=== PATIENT | male | born 1960 | race Caucasian/White ===

== ENCOUNTER 2019-02-16 23:50 | Emergency (ER) | payer BC ==
[2019-02-17] MEDS ORDERED: HYDROmorphone 1 MG/ML Syringe IM ONE (00:09)
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
[2019-02-17] MEDS ORDERED: Ondansetron 4 MG Tab.DIS PO ONE (01:13)
[2019-02-17 04:54] VITALS: BP 120/50
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
--- NOTE | 2019-02-17 08:29 | CT ---
[id number] CT/CT Thoracic Spine WO IV Exam: CT Thoracic Spine WO IV Indication:MUSCLE SPASMS DOWN BACK AND THROUGH SHOULDER BLADES Comparison: CT from 2016. Discussion: Moderate changes of degenerative disc disease throughout the thoracic spine, including numerous bridging anterior osteophytes. All levels demonstrate mild amount of intervertebral disc height loss as well. Moderate to moderate/advanced changes of facet joint arthropathy diffusely throughout the thoracic spine as well. Findings result in partial bony foraminal stenosis at multiple levels. However, no radiographic evidence of severe central canal stenosis. No evidence of an acute fracture or compression deformity. No spondylolisthesis. Bone mineralization is diffusely decreased. Moderate generalized atrophy and fatty infiltration of the paraspinal musculature. IVC filter in place. Incidentally noted is dilation of both renal collecting systems that extends beyond the field of view of this examination. Additionally, there is a complex mass arising in a cortical defect in the left kidney measuring up to 22 mm in diameter. This contains both calcification and fat. Finding was seen in 2016 and appears similar in size. Impression: No acute findings in the thoracic spine. Abnormal dilation of both renal collecting systems extending beyond the field of view of this examination. Additionally, there is a complex left renal mass. Consider CT examination of the abdomen/pelvis for further evaluation. Flip Montanez MD 02/17/19 0828 Thank you for allowing us to participate in the care of your patient.
== END 2019-02-17 02:40 | disposition home or self-care (01) ==
LOC: KA.ED 23:50
DX: S10.93XA Contusion of unspecified part of neck, initial encounter (principal); M54.6 Pain in thoracic spine; E78.00 Pure hypercholesterolemia, unspecified; I10 Essential (primary) hypertension; E10.9 Type 1 diabetes mellitus without complications; Z79.899 Other long term (current) drug therapy; Z99.3 Dependence on wheelchair; Z88.6 Allergy status to analgesic agent; Z91.030 Bee allergy status; W22.8XXA Striking against or struck by other objects, initial encounter
CPT/HCPCS: 72125; 72128; 96372; 99283; A9270; J1170; J3360

== ENCOUNTER 2019-07-16 06:50 | Inpatient (IN) | payer BC, MEDICARE ==
[2019-07-16] MEDS ORDERED: Sodium Chloride 0.9% 10 ML Syringe FLUSH PRN (07:07)
[2019-07-16] MEDS ORDERED: Metoclopramide 10 MG/2 ML SDV IVPUSH ONE (07:48)
[2019-07-16] MEDS ORDERED: Sodium Chloride 0.9% 1,000 ML IV ONE (07:48)
--- NOTE | 2019-07-16 07:55 | CR ---
[id number] RAD/RAD Chest PA or AP 1V EXAM: RAD Chest PA or AP 1V INDICATION: CHEST PAIN. COMPARISON: None. DISCUSSION: Cardiomediastinal silhouette is normal in size and contour. No infiltrate, effusion, pneumothorax, or edema. Low lung volumes associated vascular crowding. Degenerative changes of the shoulders bilaterally. IMPRESSION: No acute cardiopulmonary abnormality. John Gibbs DO 07/16/19 0753 Thank you for allowing us to participate in the care of your patient.
[2019-07-16 07:58] LABS: ANION GAP 18.1 mmol/L (5-15); CHLORIDE,CL 98 mmol/L (98-115); SODIUM,NA 137 mmol/L (136-145)
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
[2019-07-16] MEDS ORDERED: HYDROmorphone 1 MG/ML Syringe IVPUSH ONE (08:10)
--- NOTE | 2019-07-16 08:50 | CT ---
[id number] CT/CT Abdomen Pelvis WO IV EXAM: CT Abdomen Pelvis WO IV CLINICAL DATA: ABDOMEN PAIN. COMPARISON STUDY: 2016. FINDINGS: Mild amount of reactive change/inflammation in the peripancreatic fat. Findings are consistent with mild changes of acute pancreatitis. No abscess, pseudocyst, or other complicating features identified on this noncontrast study. Gallbladder has been resected. IVC filter in place. Again seen is what appears to be resolving fat necrosis adjacent to the superior pole of the right kidney. Findings have decreased in size and become more calcified since the prior examination. Circumferential urinary bladder wall thickening with a diverticulum. 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 No bowel obstruction or inflammation. No lymphadenopathy. Chronic changes throughout the osseous structures, similar to the prior examination. IMPRESSION: Findings consistent with mild changes of acute pancreatitis. Multiple chronic findings are described above. Flip Montanez MD 07/16/19 0849 Thank you for allowing us to participate in the care of your patient.
[2019-07-16] MEDS ORDERED: Melatonin 3 MG Tab PO PRN (11:05)
--- NOTE | 2019-07-16 11:21 | US ---
[id number] US/US Abdomen Limited Exam: US Abdomen Limited Clinical Data: ACUTE PANCREATITIS COMPARISON: CORRELATION IS MADE WITH TODAY'S CAT SCAN FINDINGS: The common duct is not well seen The gallbladder has been removed The liver is slightly heterogeneous The pancreas shows no obvious abnormality on ultrasound IMPRESSION: LIMITED STUDY PANCREATITIS BETTER SEEN ON CAT SCAN Fred Khalil MD 07/16/19 1120 Thank you for allowing us to participate in the care of your patient.
[2019-07-16] MEDS: HYDROmorphone 1 MG/ML Syringe IVPUSH PRN ×3 (11:43→17:54)
[2019-07-16] MEDS: Ondansetron 4 MG/2 ML SDV IVPUSH PRN ×3 (11:44→21:12)
[2019-07-16] MEDS: Lactated Ringers 1,000 ML IV SCH ×2 (11:52→18:43)
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
[2019-07-16] MEDS: Insulin Aspart 100 Units/ML 3 ML Pen SUBCUT SCH ×3 (11:58→22:00)
[2019-07-16] MEDS: Acetaminophen 500 MG Tab PO PRN (16:54)
[2019-07-16] MEDS: Ketorolac 30 MG/ML SDV IVPUSH PRN (22:17)
[2019-07-17] MEDS: Lactated Ringers 1,000 ML IV SCH ×2 (01:28→08:17)
[2019-07-17] MEDS: Ketorolac 30 MG/ML SDV IVPUSH PRN (04:01)
[2019-07-17] MEDS: Acetaminophen 500 MG Tab PO PRN (05:35)
[2019-07-17 08:06] LABS: ANION GAP 16.1 mmol/L (5-15); CHLORIDE,CL 99 mmol/L (98-115); SODIUM,NA 138 mmol/L (136-145)
[2019-07-17] MEDS: Enoxaparin 40 MG/0.4 ML Syringe SUBCUT SCH (08:17)
[2019-07-17] MEDS: Insulin Aspart 100 Units/ML 3 ML Pen SUBCUT SCH ×4 (08:25→21:52)
--- NOTE | 2019-07-17 11:36 | PCM.PN ---
- General Info Date of Service: 07/17/19 Subjective Update: Mr. Buchanan reports feeling well this morning. He has had resolution of abdominal pain and nausea. Tolerating sips of water and ice chips. Slept well after getting Toradol for a headache, which was felt to be from the hydromorphone. Has developed a runny nose this morning and he believes he has a cold coming on. Denies fever, chills, headache, chest pain, shortness of breath , dysuria, or other complaints. - Patient Data Vitals - Most Recent: Last Vital Signs Temp 36.7 C 07/17/19 10:06 Pulse 97 07/17/19 10:06 Resp 16 07/17/19 10:06 BP 142/70 H 07/17/19 10:06 Pulse Ox 96 07/17/19 10:06 Weight - Most Recent: 102.829 kg I&O - Last 24 Hours: Intake & Output 07/16/19 07/17/19 07/17/19 22:59 06:59 14:59 Intake Total 1300 1315 Output Total 1000 800 Balance 300 515 Lab Results Last 24 Hours: Laboratory Results - last 24 hr 07/16/19 07/16/19 07/16/19 Range/Units 11:49 18:03 22:22 WBC (5.00-10.00) 10^3/uL RBC (4.50-6.00) 10^6/uL Hgb (13.0-17.0) g/dL Hct (40.0-52.0) % MCV (82.0-92.0) fL MCH (27.0-31.0) pg MCHC (32.0-36.0) g/dL RDW (11.5-14.5) % Plt Count (150-400) 10^3/uL MPV (7.4-10.4) fL Immature Gran % (Auto) (0.0-5.0) % Neut % (Auto) (50.0-70.0) % Lymph % (Auto) (20.0-40.0) % [place] % (Auto) (2.0-8.0) % Eos % (Auto) (1.0-3.0) % Baso % (Auto) (0.0-1.0) % Immature Gran # (Auto) (0.00-0.50) 10^3/uL Neut # (Auto) (2.50-7.00) 10^3/uL Lymph # (Auto) (1.00-4.00) 10^3/uL [place] # (Auto) (0.10-0.80) 10^3/uL Eos # (Auto) (0.10-0.30) 10^3/uL Baso # (Auto) (0.00-0.10) 10^3/uL Sodium (136-145) mmol/L Potassium (3.3-5.3) mmol/L Chloride (98-115) mmol/L Carbon Dioxide (21.0-32.0) mmol/L Anion Gap (5-15) mmol/L BUN (6-25) mg/dL Creatinine (0.51-1.17) mg/dL Est Cr Clr Drug Dosing mL/min Estimated GFR (MDRD) mL/min Glucose (75 - 99) mg/dL POC Glucose 112 H 116 H 106 (74-106) mg/dl Calcium (8.7-10.3) mg/dL Total Bilirubin (0.2-1.0) mg/dL AST (15-37) U/L ALT (12-78) U/L Alkaline Phosphatase (46-116) IU/L Total Protein (6.4-8.2) g/dL Albumin (3.00-4.80) g/dL 07/17/19 07/17/19 07/17/19 Range/Units 05:40 07:12 07:12 WBC 3.73 L (5.00-10.00) 10^3/uL RBC 3.72 L (4.50-6.00) 10^6/uL Hgb 12.3 L (13.0-17.0) g/dL Hct 34.2 L (40.0-52.0) % MCV 91.9 (82.0-92.0) fL MCH 33.1 H (27.0-31.0) pg MCHC 36.0 (32.0-36.0) g/dL RDW 11.6 (11.5-14.5) % Plt Count 198 (150-400) 10^3/uL MPV 8.5 (7.4-10.4) fL Immature Gran % (Auto) 0.0 (0.0-5.0) % Neut % (Auto) 59.8 (50.0-70.0) % Lymph % (Auto) 24.9 (20.0-40.0) % [place] % (Auto) 11.0 H (2.0-8.0) % Eos % (Auto) 3.8 H (1.0-3.0) % Baso % (Auto) 0.5 (0.0-1.0) % Immature Gran # (Auto) 0.00 (0.00-0.50) 10^3/uL Neut # (Auto) 2.23 L (2.50-7.00) 10^3/uL Lymph # (Auto) 0.93 L (1.00-4.00) 10^3/uL [place] # (Auto) 0.41 (0.10-0.80) 10^3/uL Eos # (Auto) 0.14 (0.10-0.30) 10^3/uL Baso # (Auto) 0.02 (0.00-0.10) 10^3/uL Sodium 138 (136-145) mmol/L Potassium 4.0 (3.3-5.3) mmol/L Chloride 99 (98-115) mmol/L Carbon Dioxide 26.9 (21.0-32.0) mmol/L Anion Gap 16.1 H (5-15) mmol/L BUN 12 (6-25) mg/dL Creatinine 0.72 (0.51-1.17) mg/dL Est Cr Clr Drug Dosing 116.88 mL/min Estimated GFR (MDRD) > 60 mL/min Glucose 117 H (75 - 99) mg/dL POC Glucose 107 H (74-106) mg/dl Calcium 8.4 L (8.7-10.3) mg/dL Total Bilirubin 0.5 (0.2-1.0) mg/dL AST 13 L (15-37) U/L ALT 21 (12-78) U/L Alkaline Phosphatase 53 (46-116) IU/L Total Protein 6.5 (6.4-8.2) g/dL Albumin 3.01 (3.00-4.80) g/dL 07/17/19 Range/Units 08:24 WBC (5.00-10.00) 10^3/uL RBC (4.50-6.00) 10^6/uL Hgb (13.0-17.0) g/dL Hct (40.0-52.0) % MCV (82.0-92.0) fL MCH (27.0-31.0) pg MCHC (32.0-36.0) g/dL RDW (11.5-14.5) % Plt Count (150-400) 10^3/uL MPV (7.4-10.4) fL Immature Gran % (Auto) (0.0-5.0) % Neut % (Auto) (50.0-70.0) % Lymph % (Auto) (20.0-40.0) % [place] % (Auto) (2.0-8.0) % Eos % (Auto) (1.0-3.0) % Baso % (Auto) (0.0-1.0) % Immature Gran # (Auto) (0.00-0.50) 10^3/uL Neut # (Auto) (2.50-7.00) 10^3/uL Lymph # (Auto) (1.00-4.00) 10^3/uL [place] # (Auto) (0.10-0.80) 10^3/uL Eos # (Auto) (0.10-0.30) 10^3/uL Baso # (Auto) (0.00-0.10) 10^3/uL Sodium (136-145) mmol/L Potassium (3.3-5.3) mmol/L Chloride (98-115) mmol/L Carbon Dioxide (21.0-32.0) mmol/L Anion Gap (5-15) mmol/L BUN (6-25) mg/dL Creatinine (0.51-1.17) mg/dL Est Cr Clr Drug Dosing mL/min Estimated GFR (MDRD) mL/min Glucose (75 - 99) mg/dL POC Glucose 115 H (74-106) mg/dl Calcium (8.7-10.3) mg/dL Total Bilirubin (0.2-1.0) mg/dL AST (15-37) U/L ALT (12-78) U/L Alkaline Phosphatase (46-116) IU/L Total Protein (6.4-8.2) g/dL Albumin (3.00-4.80) g/dL Med Orders - Current: Current Medications Acetaminophen (Tylenol Extra Strength) 1,000 mg PO Q8H PRN PRN Reason: Pain Last Admin: 07/17/19 05:35 Dose: 1,000 mg Enoxaparin Sodium (Lovenox) 40 mg SUBCUT DAILY [facility] Last Admin: 07/17/19 08:17 Dose: 40 mg Hydromorphone HCl (Dilaudid) 1 mg IVPUSH Q2H PRN PRN Reason: Pain Last Admin: 07/16/19 17:54 Dose: 1 mg Lactated Ringer's (Ringers, Lactated) 1,000 mls @ 100 mls/hr IV ASDIRECTED [facility] Last Admin: 07/17/19 08:17 Dose: 150 mls/hr Insulin Aspart (Novolog) 0 unit SUBCUT WITHMEALSANDBED [facility]; Protocol Last Admin: 07/17/19 08:25 Dose: Not Given Ketorolac Tromethamine (Toradol) 30 mg IVPUSH Q6H PRN PRN Reason: Headache Stop: 07/21/19 21:41 Last Admin: 07/17/19 04:01 Dose: 30 mg Ondansetron HCl (Zofran) 4 mg IVPUSH Q4H PRN PRN Reason: Nausea/Vomiting Last Admin: 07/16/19 21:12 Dose: 4 mg Sodium Chloride (Saline Flush) 10 ml FLUSH Q8HR PRN PRN Reason: keep vein open Last Admin: 07/16/19 11:53 Dose: 10 ml Discontinued Medications Hydromorphone HCl (Dilaudid) 1 mg IVPUSH ONETIME ONE Stop: 07/16/19 08:11 Last Admin: 07/16/19 08:14 Dose: 1 mg Sodium Chloride (Normal Saline) 1,000 mls @ 999 mls/hr IV .BOLUS ONE Stop: 07/16/19 08:48 Last Admin: 07/16/19 07:50 Dose: 999 mls/hr Melatonin (Melatonin) 6 mg PO BEDTIME PRN PRN Reason: Insomnia Metoclopramide HCl (Reglan) 10 mg IVPUSH ONETIME ONE Stop: 07/16/19 07:49 Last Admin: 07/16/19 07:54 Dose: 10 mg - Exam Physical Findings Comments:: GENERAL: Well-appearing adult white male sitting on hospital bed in no acute distress. HEENT: Normocephalic, atraumatic. Conjunctiva clear. Nares patent; clear rhinorrhea. Mucous membranes moist, posterior pharynx unremarkable. NECK: Supple, no masses, anterior right neck scar. CV: Regular rate and rhythm, no murmurs, rubs, or gallops. 2+ radial pulses. PULMONARY: Normal effort, clear to auscultation bilaterally, no wheezes, rales, or rhonchi. ABDOMEN: Positive bowel sounds, soft, nontender. EXTREMITIES: No edema, cyanosis, or clubbing. MUSCULOSKELETAL: R AKA stump well healed. Moves all extremities well. NEUROLOGICAL: No obvious deficits. DERMATOLOGIC: No rashes or suspicious lesions in exposed areas. PSYCHIATRIC: Alert, interactive, appropriate affect. - Problem List Review Problem List Initiated/Reviewed/Updated: Yes - My Orders Last 24 Hours: My Active Orders 07/16/19 10:56 Intake and Output [RC] 1400,2200,0600 HYDROmorphone [Dilaudid] 1 mg IVPUSH Q2H PRN 07/16/19 10:59 Ondansetron [Zofran] 4 mg IVPUSH Q4H PRN 07/16/19 11:00 Lactated Ringers [Ringers, Lactated] 1,000 ml IV ASDIRECTED 07/16/19 11:03 Up With Assistance [RC] ASDIRECTED 07/16/19 12:00 Insulin Aspart [NovoLOG] See Protocol SUBCUT WITHMEALSANDBED 07/16/19 15:13 Blood Glucose Check, Bedside [RC] QIDACANDBED 07/16/19 16:15 Acetaminophen [Tylenol Extra Strength] 1,000 mg PO Q8H PRN 07/16/19 21:40 Ketorolac [Toradol] 30 mg IVPUSH Q6H PRN 07/17/19 09:00 Enoxaparin [Lovenox] 40 mg SUBCUT DAILY 07/17/19 Dinner Full Liquid Diet [DIET] 07/17/19 Lunch Clear Liquid Diet [DIET] 07/18/19 05:11 CBC WITH AUTO DIFF [HEME] AM COMPREHENSIVE METABOLIC PN,CMP [CHEM] AM - Plan Plan:: HPI summary: 59yoM with a hx notable for DMT2 who was in his usual state of health until about 1 week ago, when he saw his PCP Dr. Morales at [facility] for routine follow-up of DMT2. Due to reports of using upwards of 4000mg of Tylenol daily, was started on tramadol 50mg prn for chronic neck and hand pain, for which he is also being seen by neurosurgery for planned additional interventions. He also received his Shingrix vaccination that day. The subsequent few days, he had generalized malaise and low back pain, for which he was seen at [facility] on 07/14/19. He states he didn't have any abdominal pain at that time. UA was completed and without concern for infection and he was instructed to push fluids and return for any worsening. In the past 12 hours , he developed mid-upper abdominal pain with radiation into the RUQ and back associated with anorexia, nausea, and diarrhea. Any po intake and movement exacerbate the pain. Due to worsening and also development of pain radiating into his R chest, he came by private vehicle into the [facility] ED. He denies any medication changes recently aside from starting tramadol, which he has taken about once daily. He has a history of laparoscopic cholecystectomy due to gallstones in 2016 without known complications since. He endorses longstanding binge drinking of 10-12 drinks on Saturdays while watching football, but no alcohol use otherwise. Due to generalized malaise last week, he drank less (3 beers) 4 days ago on Sunday instead and reports that is the last time he drank. ED work-up and interventions: VS without fever, hypotension, or tachycardia. CBC/CMP/lipase/troponin/UA unremarkable except lipase 2260. EKG NSR without ST segment changes. CXR unremarkable. CT abdomen/pelvis without contrast with evidence of mild pancreatitis and chronic findings of bladder thickening, R kidney fat necrosis, chronic osseous changes, and IVC filter. He was given NS 1L, hydromorphone 1mg, and metoclopramide 10mg. Hospital course: Resolution of abdominal pain and nausea with IVF and minimal use of hydromorphone. Had rebound headache following hydromorphone relieved with ketorolac. Hospitalization problems and plan: # Acute pancreatitis: Lipase [address] with evidence of mild acute pancreatitis. Clinical status, labs, and imaging studies without evidence of infection or complication. Etiology favors recurrent alcohol binge drinking as acause. Labs, US, and CT without evidence of retained stone from prior cholecystectomy, triglycerides not significantly elevated, and no common culprit medications currently taking. - Advanced diet to clear liquids this morning, full liquids in the afternoon , and low fat diet in the evening if tolerating well - Decrease LR to 100cc/hr now and then discontinue later if advancing diet - CBC and CMP tomorrow # Bladder thickening noted on CT: No urinary sxs. Monitor and consider further outpatient workup. 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 Consider outpatient consultation for removal. Chronic, stable conditions: # RABIA: Home CPAP. # HTN: Hold quinapril for now while monitoring BP. # DMT2: Recent A1c 7%. Hold metformin and glimiperide. ISS low dose QID. # HLD: Hx mixed hyperlipidemia with last lipid panel 05/01/19 with TG 446, which is the highest on record since 2013. Hold atorvastatin. # Osteoarthritis and associated joint pain: Hold tramadol. # ADHD: Hold Adderall. Hospitalization details: # FEN: LR @ 100cc/hr. Electrolytes normal; recheck tomorrow. Advance diet as above. # PPX: Enoxaparin 40mg daily for DVT ppx. # Code status: FULL. # Emergency contact: , Christianne. # Disposition: Continue inpatient status. Anticipate discharge tomorrow if ongoing clinical improvement.
[2019-07-17] MEDS ORDERED: Sodium Chloride 0.9% 1,000 ML IV SCH (13:00)
[2019-07-17] MEDS ORDERED: Pseudoephedrine 30 MG Tab PO PRN (20:36)
[2019-07-18] MEDS: Ondansetron 4 MG/2 ML SDV IVPUSH PRN (01:45)
[2019-07-18] MEDS: Ketorolac 30 MG/ML SDV IVPUSH PRN (01:49)
[2019-07-18] MEDS: Insulin Aspart 100 Units/ML 3 ML Pen SUBCUT SCH ×2 (08:04→11:54)
[2019-07-18 08:29] LABS: ANION GAP 12.5 mmol/L (5-15); CHLORIDE,CL 102 mmol/L (98-115); SODIUM,NA 138 mmol/L (136-145)
[2019-07-18] MEDS: Enoxaparin 40 MG/0.4 ML Syringe SUBCUT SCH (08:51)
--- NOTE | 2019-07-18 10:36 | PCM.DCSUM1 ---
Discharge Summary - Hospital Course Free Text/Narrative:: Date of admission: 07/16/19 Date of discharge: 07/18/19 Admission diagnoses: # Acute pancreatitis # Alcohol use disorder, binge drinking # Bladder thickening noted on CT # Residual IVC filter # RABIA # HTN # DMT2 # HLD # Osteoarthritis # ADHD Discharge diagnoses: # Acute pancreatitis, likely alcohol induced # Alcohol use disorder, binge drinking # Bladder thickening noted on CT # Residual IVC filter # RABIA # HTN # DMT2 # HLD # Osteoarthritis # ADHD Consultations: None Procedures: None Hospital course: HPI summary: 59yoM with a hx notable for DMT2 who was in his usual state of health until about 1 week prior to admission, when he saw his PCP Dr. Morales at [facility] for routine follow-up of DMT2. Due to reports of using upwards of 4000mg of Tylenol daily, was started on tramadol 50mg prn for chronic neck and hand pain, for which he is also being seen by neurosurgery for planned additional interventions. He also received his Shingrix vaccination that day. The subsequent few days, he had generalized malaise and low back pain , for which he was seen at [facility] on 07/14/19. He states he didn't have any abdominal pain at that time. UA was completed and without concern for infection and he was instructed to push fluids and return for any worsening. Subsequently in the day prior to admission, he developed mid-upper abdominal pain with radiation into the RUQ and back associated with anorexia, nausea, and diarrhea. Any po intake and movement exacerbate the pain. Due to worsening and also development of pain radiating into his R chest, he came by private vehicle into the [facility] ED. He denies any medication changes recently aside from starting tramadol, which he has taken about once daily. He has a history of laparoscopic cholecystectomy due to gallstones in 2016 without known complications since. He endorses longstanding binge drinking of 10-12 drinks on Saturdays while watching football, but no alcohol use otherwise. Due to generalized malaise last week, he drank less (3 beers) 4 days ago on Sunday instead and reports that is the last time he drank. ED evaluation was consistent with acute pancreatitis (Lipase [address] with evidence of mild acute pancreatitis) without evidence of infection. He was admitted for ongoing evaluation and management. He had resolution of abdominal pain and nausea with IVF and minimal use of hydromorphone. Had rebound headache following hydromorphone relieved with ketorolac. Otherwise did well and progressed to a low fat/fiber diet and discontinuation of IVF. No complications arose during his stay. He was placed on low dose ISS in lieu of oral diabetic medications during his inpatient stay and other oral medications (quinapril, atorvastatin, tramadol, and Adderall) were also held during his stay, but felt to safely be restarted at discharge. Nighttime CPAP was continued. Etiology of the pancreatitis favors recurrent alcohol binge drinking as cause, as labs, US, and CT without evidence of retained stone from prior cholecystectomy, triglycerides not significantly elevated, and no common culprit medications currently taking (of note, metformin and atorvastatin are class III for culprits of drug-induced pancreatitis and have been chronic medications for him, so unlikely to be implicated as underlying etiology). He was counseled on alcohol cessation for at least the coming month and avoidance of excessive use in the future to prevent recurrence. He was also counseled on return precautions for subacute complications of pancreatitis and other concerns which may arise. Of note, CT noted bladder thickening and residual IVF filter. Consider outpatient work-up for bladder thickening and consultation for IVC filter removal. Discharge and follow-up recommendations: - Discharge to home - Low fat/fiber diet with no alcohol - New medications at discharge: None - Follow-up with Max Jung PA-C, at [facility], per patient request for hospital follow-up - Consider outpatient work-up for bladder thickening and consultation for IVC filter removal - Discharge Data Discharge Date: 07/18/19 Discharge Disposition: Home, Self-Care 01 Condition: Good - Referral to Home Health Primary Care Physician: Oziel Morales MD - Patient Instructions Diet: GI Soft/Low Residue/Low Fiber (Low Fat) Diet, Other: Avoid alcohol Activity: As Tolerated Showering/Bathing: May Shower Notify Provider of: Fever, Increased Pain, Nausea and/or Vomiting - Discharge Plan *PRESCRIPTION DRUG MONITORING PROGRAM REVIEWED*: Yes *COPY OF PRESCRIPTION DRUG MONITORING REPORT IN PATIENT RHINA: Yes Home Medications: Home Meds Amphetamine/Dextroamphetamine [Adderall] 20 mg PO ASDIRECTED 05/26/14 [History] Quinapril [Accupril] 20 mg PO DAILY 05/26/14 [History] metFORMIN [Glucophage] 500 mg PO BID 05/26/14 [History] atorvaSTATin Calcium [Atorvastatin Calcium] 20 mg PO DAILY 12/04/15 [History] Glimepiride 4 mg PO DAILY 02/17/19 [History] traMADol HCl [Tramadol HCl] 50 mg PO Q4H PRN 07/16/19 [History] Acetaminophen [Tylenol Extra Strength] 1,000 mg PO Q8H PRN tablet 07/18/19 [Rx] Patient Handouts: Acute Pancreatitis Referrals: Max Jung PA-C [Physician Site Physician] - 07/24/19 3:30 pm ([facility]) - Discharge Summary/Plan Comment DC Time >30 min.: Yes - General Info Subjective Update: Mr. Buchanan reports feeling well this morning. He has a mild episode of 2/10 severity upper abdominal pain in the night, which resolved with a dose of ketorolac. He has since tolerated clear liquids for breakfast without return of abdominal pain and nausea. Ongoing runny nose, but no other respiratory or HEENT symptoms. Denies fever, chills, headache, chest pain, shortness of breath , or other complaints. - Patient Data Vitals - Most Recent: Last Vital Signs Temp 36.1 C 07/18/19 06:53 Pulse 86 07/18/19 06:53 Resp 16 07/18/19 06:53 BP 135/79 07/18/19 09:00 Pulse Ox 99 07/18/19 09:00 Weight - Most Recent: 102.829 kg I&O - Last 24 hours: Intake & Output 07/17/19 07/18/19 07/18/19 22:59 06:59 14:59 Intake Total 780 50 Balance 780 50 Lab Results - Last 24 hrs: Laboratory Results - last 24 hr 07/17/19 07/17/19 07/18/19 Range/Units 17:47 21:38 07:29 WBC (5.00-10.00) 10^3/uL RBC (4.50-6.00) 10^6/uL Hgb (13.0-17.0) g/dL Hct (40.0-52.0) % MCV (82.0-92.0) fL MCH (27.0-31.0) pg MCHC (32.0-36.0) g/dL RDW (11.5-14.5) % Plt Count (150-400) 10^3/uL MPV (7.4-10.4) fL Immature Gran % (Auto) (0.0-5.0) % Neut % (Auto) (50.0-70.0) % Lymph % (Auto) (20.0-40.0) % [place] % (Auto) (2.0-8.0) % Eos % (Auto) (1.0-3.0) % Baso % (Auto) (0.0-1.0) % Immature Gran # (Auto) (0.00-0.50) 10^3/uL Neut # (Auto) (2.50-7.00) 10^3/uL Lymph # (Auto) (1.00-4.00) 10^3/uL [place] # (Auto) (0.10-0.80) 10^3/uL Eos # (Auto) (0.10-0.30) 10^3/uL Baso # (Auto) (0.00-0.10) 10^3/uL Sodium (136-145) mmol/L Potassium (3.3-5.3) mmol/L Chloride (98-115) mmol/L Carbon Dioxide (21.0-32.0) mmol/L Anion Gap (5-15) mmol/L BUN (6-25) mg/dL Creatinine (0.51-1.17) mg/dL Est Cr Clr Drug Dosing mL/min Estimated GFR (MDRD) mL/min Glucose (75 - 99) mg/dL POC Glucose 226 H 179 H 160 H (74-106) mg/dl Calcium (8.7-10.3) mg/dL Total Bilirubin (0.2-1.0) mg/dL AST (15-37) U/L ALT (12-78) U/L Alkaline Phosphatase (46-116) IU/L Total Protein (6.4-8.2) g/dL Albumin (3.00-4.80) g/dL 07/18/19 07/18/19 Range/Units 07:55 07:55 WBC 4.12 L (5.00-10.00) 10^3/uL RBC 3.87 L (4.50-6.00) 10^6/uL Hgb 12.6 L (13.0-17.0) g/dL Hct 35.4 L (40.0-52.0) % MCV 91.5 (82.0-92.0) fL MCH 32.6 H (27.0-31.0) pg MCHC 35.6 (32.0-36.0) g/dL RDW 11.7 (11.5-14.5) % Plt Count 199 (150-400) 10^3/uL MPV 8.1 (7.4-10.4) fL Immature Gran % (Auto) 0.0 (0.0-5.0) % Neut % (Auto) 63.1 (50.0-70.0) % Lymph % (Auto) 20.1 (20.0-40.0) % [place] % (Auto) 12.9 H (2.0-8.0) % Eos % (Auto) 3.4 H (1.0-3.0) % Baso % (Auto) 0.5 (0.0-1.0) % Immature Gran # (Auto) 0.00 (0.00-0.50) 10^3/uL Neut # (Auto) 2.60 (2.50-7.00) 10^3/uL Lymph # (Auto) 0.83 L (1.00-4.00) 10^3/uL [place] # (Auto) 0.53 (0.10-0.80) 10^3/uL Eos # (Auto) 0.14 (0.10-0.30) 10^3/uL Baso # (Auto) 0.02 (0.00-0.10) 10^3/uL Sodium 138 (136-145) mmol/L Potassium 4.2 (3.3-5.3) mmol/L Chloride 102 (98-115) mmol/L Carbon Dioxide 27.7 (21.0-32.0) mmol/L Anion Gap 12.5 (5-15) mmol/L BUN 11 (6-25) mg/dL Creatinine 0.75 (0.51-1.17) mg/dL Est Cr Clr Drug Dosing 112.20 mL/min Estimated GFR (MDRD) > 60 mL/min Glucose 184 H (75 - 99) mg/dL POC Glucose (74-106) mg/dl Calcium 8.6 L (8.7-10.3) mg/dL Total Bilirubin 0.3 (0.2-1.0) mg/dL AST 14 L (15-37) U/L ALT 22 (12-78) U/L Alkaline Phosphatase 55 (46-116) IU/L Total Protein 6.6 (6.4-8.2) g/dL Albumin 3.13 (3.00-4.80) g/dL Med Orders - Current: Current Medications Acetaminophen (Tylenol Extra Strength) 1,000 mg PO Q8H PRN PRN Reason: Pain Last Admin: 07/17/19 05:35 Dose: 1,000 mg Enoxaparin Sodium (Lovenox) 40 mg SUBCUT DAILY [facility] Last Admin: 07/18/19 08:51 Dose: 40 mg Insulin Aspart (Novolog) 0 unit SUBCUT WITHMEALSANDBED [facility]; Protocol Last Admin: 07/18/19 08:04 Dose: 1 units Ketorolac Tromethamine (Toradol) 30 mg IVPUSH Q6H PRN PRN Reason: Headache Stop: 07/21/19 21:41 Last Admin: 07/18/19 01:49 Dose: 30 mg Ondansetron HCl (Zofran) 4 mg IVPUSH Q4H PRN PRN Reason: Nausea/Vomiting Last Admin: 07/18/19 01:45 Dose: 4 mg Pseudoephedrine HCl (Sudogest) 30 mg PO Q6H PRN PRN Reason: Congestion Last Admin: 07/17/19 21:40 Dose: 30 mg Quinapril HCl (Accupril) 20 mg PO DAILY [facility] Last Admin: 07/18/19 09:50 Dose: Not Given Sodium Chloride (Saline Flush) 10 ml FLUSH Q8HR PRN PRN Reason: keep vein open Last Admin: 07/16/19 11:53 Dose: 10 ml Discontinued Medications Hydromorphone HCl (Dilaudid) 1 mg IVPUSH ONETIME ONE Stop: 07/16/19 08:11 Last Admin: 07/16/19 08:14 Dose: 1 mg Hydromorphone HCl (Dilaudid) 1 mg IVPUSH Q2H PRN PRN Reason: Pain Last Admin: 07/16/19 17:54 Dose: 1 mg Sodium Chloride (Normal Saline) 1,000 mls @ 999 mls/hr IV .BOLUS ONE Stop: 07/16/19 08:48 Last Admin: 07/16/19 07:50 Dose: 999 mls/hr Lactated Ringer's (Ringers, Lactated) 1,000 mls @ 100 mls/hr IV ASDIRECTED [facility] Last Admin: 07/17/19 08:17 Dose: 150 mls/hr Sodium Chloride (Normal Saline) 1,000 mls @ 100 mls/hr IV ASDIRECTED [facility] Melatonin (Melatonin) 6 mg PO BEDTIME PRN PRN Reason: Insomnia Metoclopramide HCl (Reglan) 10 mg IVPUSH ONETIME ONE Stop: 07/16/19 07:49 Last Admin: 07/16/19 07:54 Dose: 10 mg - Exam Physical Findings Comments:: GENERAL: Well-appearing adult white male sitting on hospital bed in no acute distress. HEENT: Normocephalic, atraumatic. Conjunctiva clear. Nares patent; clear rhinorrhea. Mucous membranes moist, posterior pharynx unremarkable. NECK: Supple, no masses, anterior right neck scar. CV: Regular rate and rhythm, no murmurs, rubs, or gallops. 2+ radial pulses. PULMONARY: Normal effort, clear to auscultation bilaterally, no wheezes, rales, or rhonchi. ABDOMEN: Positive bowel sounds, soft, nontender. EXTREMITIES: No edema, cyanosis, or clubbing. MUSCULOSKELETAL: R AKA stump well healed. Moves all extremities well. NEUROLOGICAL: No obvious deficits. DERMATOLOGIC: No rashes or suspicious lesions in exposed areas. PSYCHIATRIC: Alert, interactive, appropriate affect.
[2019-07-18 12:12] VITALS: BP 165/72; PULSE 67
== END 2019-07-18 13:10 | disposition home or self-care (01) | DRG 282 ==
LOC: KA.ED 06:50 → KA.MS 09:04
PROVIDERS: ADMIT Physician Assistant Surgical; ATTEND Family Medicine
DX: K85.20 Alcohol induced acute pancreatitis without necrosis or infection (principal); E78.2 Mixed hyperlipidemia; I10 Essential (primary) hypertension; H54.7 Unspecified visual loss; M19.91 Primary osteoarthritis, unspecified site; F32.9 Major depressive disorder, single episode, unspecified; E66.9 Obesity, unspecified; E11.9 Type 2 diabetes mellitus without complications; G47.33 Obstructive sleep apnea (adult) (pediatric); F90.9 Attention-deficit hyperactivity disorder, unspecified type; F10.988 Alcohol use, unspecified with other alcohol-induced disorder; Z90.49 Acquired absence of other specified parts of digestive tract; Z89.612 Acquired absence of left leg above knee; Z88.5 Allergy status to narcotic agent; Z91.030 Bee allergy status; Z79.899 Other long term (current) drug therapy; Z79.84 Long term (current) use of oral hypoglycemic drugs; Z68.32 Body mass index [BMI] 32.0-32.9, adult
CPT/HCPCS: 36415; 71045; 74176; 76705; 80053; 80061; 81003; 82962; 83690; 84484; 85025; 86140; 93005; 96361; 96374; 96375; 99285-25; A9270-GY; J1170; J1650; J1815-GY; J1885; J2405; J2765; J7030; J7120

== ENCOUNTER 2021-06-03 17:53 | Emergency (ER) | payer BC, MEDICARE ==
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
[2021-06-03] MEDS ORDERED: HYDROmorphone 1 MG/ML Syringe IVPUSH ONE (18:26)
[2021-06-03] MEDS ORDERED: Sodium Chloride 0.9% 10 ML Syringe FLUSH PRN (18:26)
[2021-06-03] MEDS ORDERED: Ondansetron 4 MG/2 ML SDV IVPUSH ONE (18:26)
[2021-06-03 19:10] VITALS: BP 170/98; PULSE 116
[2021-06-03] MEDS ORDERED: Ketorolac 30 MG/ML SDV IVPUSH ONE (19:14)
== END 2021-06-03 20:21 | disposition home or self-care (01) ==
LOC: KA.ED 17:53
DX: M25.512 Pain in left shoulder (principal); G89.18 Other acute postprocedural pain; E78.00 Pure hypercholesterolemia, unspecified; I10 Essential (primary) hypertension; E10.9 Type 1 diabetes mellitus without complications; E66.9 Obesity, unspecified; Z68.33 Body mass index [BMI] 33.0-33.9, adult; Z79.84 Long term (current) use of oral hypoglycemic drugs; Z79.899 Other long term (current) drug therapy; Z88.5 Allergy status to narcotic agent; Z91.030 Bee allergy status
CPT/HCPCS: 96374; 96375; 99283; J1170; J1885; J2405

== ENCOUNTER 2022-01-25 18:24 | Emergency (ER) | payer BC ==
[2022-01-25 19:19] LABS: ANION GAP 12.2 mmol/L (5-15); CHLORIDE,CL 100 mmol/L (98-107); SODIUM,NA 135 mmol/L (136-145)
[2022-01-25 19:37] LABS: ESTIMATED GFR > 60 mL/min
[2022-01-25] MEDS ORDERED: Enoxaparin 100 MG/1 ML Syringe SUBCUT ONE (19:55)
[2022-01-25] MEDS ORDERED: Aspirin 81 MG Tab.Chew PO ONE (19:56)
[2022-01-25] MEDS ORDERED: Sodium Chloride 0.9% 1,000 ML IV ONE (19:57)
[2022-01-25] MEDS ORDERED: Metoprolol Tartrate 50 MG Tab PO ONE (20:02)
[2022-01-25 20:08] VITALS: BP 155/91; PULSE 103
== END 2022-01-25 20:19 ==
LOC: KA.ED 18:24
DX: I21.4 Non-ST elevation (NSTEMI) myocardial infarction (principal); E78.00 Pure hypercholesterolemia, unspecified; I10 Essential (primary) hypertension; E10.9 Type 1 diabetes mellitus without complications; E66.9 Obesity, unspecified; Z68.31 Body mass index [BMI] 31.0-31.9, adult; Z91.040 Latex allergy status; Z88.5 Allergy status to narcotic agent; Z91.030 Bee allergy status; Z79.899 Other long term (current) drug therapy
CPT/HCPCS: 36415; 71045; 80053; 83690; 84484; 85025; 93005; 93010; 96372; 99284; 99285-25; A9270-GY; J1650; J7030

== ENCOUNTER 2022-09-23 21:07 | Emergency (ER) | payer BC ==
[~2022-09-23 21:07] MED LIST: Sodium Chloride 0.9% 10 ML Syringe FLUSH SCH
[2022-09-23 21:49] LABS: ANION GAP 16.5 mmol/L (5-15); CHLORIDE,CL 95 mmol/L (98-107); ESTIMATED GFR 103 mL/min (>=60); SODIUM,NA 133 mmol/L (136-145)
[2022-09-23] MEDS ORDERED: Ondansetron 4 MG/2 ML SDV IVPUSH ONE ×2 (21:58→22:17)
[2022-09-23] MEDS ORDERED: fentaNYL 100 MCG/2 ML SDV IVPUSH ONE ×2 (22:31→22:49)
[2022-09-23 23:16] VITALS: BP 139/82; PULSE 95
== END 2022-09-23 23:03 ==
LOC: SUPCPDRO 21:07 → KA.ED 21:07
DX: S12.100A Unspecified displaced fracture of second cervical vertebra, initial encounter for closed fracture (principal); I10 Essential (primary) hypertension; E78.00 Pure hypercholesterolemia, unspecified; M19.90 Unspecified osteoarthritis, unspecified site; E10.9 Type 1 diabetes mellitus without complications; E66.9 Obesity, unspecified; Z68.34 Body mass index [BMI] 34.0-34.9, adult; Z88.5 Allergy status to narcotic agent; Z91.040 Latex allergy status; Z91.030 Bee allergy status; Z79.84 Long term (current) use of oral hypoglycemic drugs; Z79.899 Other long term (current) drug therapy; W18.30XA Fall on same level, unspecified, initial encounter; Y92.481 Parking lot as the place of occurrence of the external cause
CPT/HCPCS: 36415; 70450; 72125; 80053; 80307; 85025; 96374; 96375; 99284; 99285-25; J2405; J3010; J3490